=== PATIENT | male | born 1980 | race African-American/Black ===

== ENCOUNTER 2017-06-03 01:15 | Emergency (ER) | payer SELFPAY ==
[2017-06-03 01:44] LABS: Bilirubin Negative (Negative); Blood, Urine Negative (Negative); Clarity CLEAR (Clear); Glucose, Urine (Dipstick) Negative (Negative); Leukocyte Negative (Negative); Nitrite Negative (Negative); Protein, Urine (Dipstick) Negative (Neg-Trace); Specific Gravity, Urine 1.017 (1.002-1.036); Urobilinogen 0.2 mg/dL (0.2-1.0); pH, Urine 6.5 (5.0-9.0)
[2017-06-03] MEDS ORDERED: Lidocaine 1% PF 5 ML VIAL ONE (03:20)
[2017-06-03] MEDS ORDERED: cefTRIAXone\\ROCEPHIN 250 MG VIAL ONE (03:20)
[2017-06-03] MEDS ORDERED: Azithromycin 250 MG TAB ONE (03:22)
--- NOTE | 2017-06-03 08:43 | ULT ---
PRELIMINARY REPORT/[facility]/EMERGENCY AFTER HOURS PROCEDURE: EXAM: US Scrotum CLINICAL HISTORY: 36 years old, male; Pain; Groin pain; Patient HX: Rt groin to teste pain x 1 day TECHNIQUE: Real-time ultrasound of the scrotum with color Doppler and image documentation. COMPARISON: No relevant prior studies available. FINDINGS: Right testicle: The RIGHT testicle measures 3.4 x 3.3 x 1.9 cm. No torsion. Left testicle: LEFT testicle measures 3.1 x 1.0 x 1.6 cm. No torsion. Epididymides: The RIGHT epididymis is normal. The LEFT epididymis is normal. Scrotum: There is a small RIGHT hydrocele. There is no LEFT hydrocele. There is no varicocele on eith er side. IMPRESSION: Small RIGHT hydrocele. Otherwise unremarkable exam. EXAM: US Duplex Arterial/Venous of the Testicles, Complete EXAM DATE/TIME: Exam ordered 06/03/2017 2:07 AM CLINICAL HISTORY: 36 years old, male; Pain; Groin pain; Patient HX: Rt groin to teste pain x 1 day TECHNIQUE: Real-time duplex ultrasound scan of the arterial and venous flow of the scrotal contents with color D oppler flow and spectral waveform analysis. COMPARISON: No relevant prior studies available. FINDINGS: Right testicle: Normal. Normal blood flow. Left testicle: Normal. Normal blood flow. IMPRESSION: Normal duplex ultrasound of the scrotum and testicles. Thank you for allowing us to participate in the care of your patient. Dictated and Authenticated by: Pedrito Jimenez MD 06/03/2017 2:39 AM Central Time ([place] & [place]) FINAL REPORT TESTICULAR ULTRASOUND: HISTORY: Right testicular pain. COMPARISON: None. FINDINGS: Real-time, andres scale, color Doppler, and spectral analysis of the testicles performed with a linear ray transducer. There is adequate vascular flow to both testicles. Normal size. No mass. IMPRESSION: Findings and impression are concordant with the preliminary report. POS: [facility]
--- NOTE | 2017-06-03 08:54 | CT ---
PRELIMINARY REPORT/[facility]/EMERGENCY AFTER HOURS PROCEDURE: Addendum created by Pedrito Jimenez MD on 06/03/2017 3:06 AM Central Time ([place] & [place]) Findings were discussed with RENE COVINGTON at 06/03/2017 3:05 AM CDT. There is clinical suspicion for perirectal abscess. Upon further review no large abscess is seen although there is trace perirectal t hickening with a small 1 cm collection seen centrally within the midline perineum, nonspecific howev er small abscess cannot be excluded. Initial Report created on 06/03/2017 2:42 AM Central Time ([place] & [place]) EXAM: CT Pelvis With Intravenous Contrast EXAM DATE/TIME: Exam ordered 06/03/2017 2:27 AM CLINICAL HISTORY: 36 years old, male; Pain; Perianal pain; Patient HX: 36 yo m. Pt states that he is having right groin pain radiating into testicle onset 06/02 and continued. Reports pain onset and denies any trauma or i njury. Denies any penile discharge, urinary retention. ; Additional info: *pt unable had difficulty s taying still due to pain TECHNIQUE: Axial computed tomography images of the pelvis with intravenous contrast. Coronal and sagittal reformatted images were created and reviewed. COMPARISON: No relevant prior studies available. FINDINGS: Bowel: Visualized bowel is unremarkable. No obstruction. No mucosal thickening. Appendix: No appendix is specifically identified. There is no evidence of fluid collections or inflam matory stranding in the right lower quadrant. Intraperitoneal space: Normal. No free air. No significant fluid collection. Bladder: The bladder is normal. Reproductive: The prostate gland and seminal vesicles are normal. Bones/joints: No acute hip fracture. There is motion artifact limiting evaluation of the iliac bones. No dislocation. Soft tissues: No groin hernia Vasculature: Normal. No lower abdominal aortic aneurysm. Lymph nodes: Normal. No enlarged lymph nodes. IMPRESSION: No acute hip fracture. Thank you for allowing us to participate in the care of your patient. Dictated and Authenticated by: Pedrito Jimenez MD 06/03/2017 2:42 AM Central Time ([place] & [place]) FINAL REPORT CT PELVIS WITH CONTRAST: HISTORY: Rectal mass. COMPARISON: None. FINDINGS/IMPRESSION: Findings and impression are concordant with the preliminary report. There is concern for a 1 cm robinson ection posterior to the rectum which may be within an enteric plane. The pelvis MRI has much greater sensitivity and specificity for evaluating for sinus tracts and fistulas. POS: [facility]
[2017-06-03] MEDS ORDERED: ISOVUE-370 76%-LOCM 1 ML ONE (12:23)
== END 2017-06-03 03:49 | disposition home or self-care (01) ==
LOC: ERS 01:15
DX: N43.3 Hydrocele, unspecified (principal); K61.1 Rectal abscess; I10 Essential (primary) hypertension; F17.210 Nicotine dependence, cigarettes, uncomplicated
CPT/HCPCS: 72193; 76870; 81003; 87086; 93976; 96361; 96374; J0696; J2001

== ENCOUNTER 2021-07-01 05:49 | Day surgery (SDC) | payer OTHER ==
[2021-06-28 10:08] VITALS: BMI 33.2
[2021-07-01] MEDS ORDERED: Fentanyl 100 MCG/2 ML VIAL ONE ×2 (06:40→06:44)
[2021-07-01] MEDS ORDERED: Midazolam HCl 2 mg/2 ml Vial ONE (06:40)
[2021-07-01] MEDS ORDERED: Propofol 1,000 MG/100 ML VIAL IV ONE (06:44)
[2021-07-01] MEDS ORDERED: Phenylephrine 10 MG/ML VIAL ONE (06:44)
[2021-07-01] MEDS ORDERED: Isoproterenol 0.2 MG/1 ML AMP ONE ×2 (07:04→08:22)
[2021-07-01] MEDS ORDERED: Heparin 10,000 UNITS/ 10 ML VIAL ONE ×2 (07:04→11:56)
[2021-07-01] MEDS ORDERED: Lidocaine 1% (PF) 30 ML VIAL ONE (07:04)
[2021-07-01] MEDS ORDERED: Ketamine 50 MG/ML (10ML VIAL) ONE (07:10)
[2021-07-01] MEDS ORDERED: PROPOFOL 200 MG/20 ML VIAL ONE (07:41)
[2021-07-01] MEDS ORDERED: PHENYLEPHRINE-NS 100 MCG/ML 10 ML SYRINGE ONE (07:41)
[2021-07-01] MEDS ORDERED: Lidocaine 1% PF 5 ML VIAL ONE (07:41)
[2021-07-01] MEDS ORDERED: Rocuronium Bromide 10 MG/ML (10ML VIAL) ONE (07:41)
[2021-07-01] MEDS ORDERED: Glycopyrrolate 0.2 MG/ML 5 ML SYRINGE ONE (07:41)
[2021-07-01] MEDS ORDERED: Heparin 25,000 units/D5W 0 ML ONE (11:56)
[2021-07-01] MEDS ORDERED: hydrALAZINE 20 MG/ML VIAL ONE (16:37)
== END 2021-07-01 17:18 ==
LOC: EEVIPCON 05:49 → SDC 05:49
PROVIDERS: ATTEND Internal Medicine Cardiovascular Disease
DX: I45.6 Pre-excitation syndrome (principal); I47.1 Supraventricular tachycardia; I42.8 Other cardiomyopathies; I11.0 Hypertensive heart disease with heart failure; I50.40 Unspecified combined systolic (congestive) and diastolic (congestive) heart failure; I08.1 Rheumatic disorders of both mitral and tricuspid valves; Z87.891 Personal history of nicotine dependence; Z79.01 Long term (current) use of anticoagulants; Z79.899 Other long term (current) drug therapy; I48.91 Unspecified atrial fibrillation; I48.3 Typical atrial flutter
CPT/HCPCS: 93005; 93613; 93623; 93653; 93662; C1730; C1732; C1760; J0360; J1644; J2001; J2250; J2370; J2704; J3010